=== PATIENT | male | born 1950 | race Hispanic/Latino ===

== ENCOUNTER 2018-03-25 11:49 | Emergency (ER) | payer BC ==
[2018-03-25 11:59] VITALS: BP 120/86
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
== END 2018-03-25 12:50 | disposition home or self-care (01) ==
LOC: ED 11:49
DX: S00.512A Abrasion of oral cavity, initial encounter (principal); E86.0 Dehydration; I10 Essential (primary) hypertension; R42 Dizziness and giddiness; Z90.49 Acquired absence of other specified parts of digestive tract; F17.200 Nicotine dependence, unspecified, uncomplicated; Z59.0 Homelessness; X58.XXXA Exposure to other specified factors, initial encounter; Y93.89 Activity, other specified; Y92.89 Other specified places as the place of occurrence of the external cause; Y99.8 Other external cause status
CPT/HCPCS: 99282

== ENCOUNTER 2018-03-25 18:35 | Emergency (ER) | payer MEDICARE ==
[2018-03-25] MEDS ORDERED: NACL 0.9% 1000 ML 1,000 ML IV ONE (19:05)
[2018-03-25 19:07] LABS: Basophils # (Auto) 0.1 K/mm3 (0.0-0.1); Basophils % (Auto) 1.1 % (0.0-1.8); Eosinophils # (Auto) 0.4 K/mm3 (0.0-0.4); Hematocrit 44.6 % (35.5-45.6); Hemoglobin 15.6 gm/dl (11.8-15.2); Lymphocytes # (Auto) 1.9 K/mm3 (1.2-5.4); Lymphocytes % (Auto) 24.4 % (13.4-35.0); Mean Corpuscular HGB Conc 35 % (32-34); Mean Corpuscular Hemoglobin 33 pg (28-32); Mean Corpuscular Volume 94 fl (84-94); Monocytes # (Auto) 1.1 K/mm3 (0.0-0.8); Monocytes % (Auto) 14.1 % (0.0-7.3); Platelet Count 223 K/mm3 (140-440); Red Blood Count 4.72 M/mm3 (3.65-5.03); Red Cell Distribution Width 13.9 % (13.2-15.2)
--- NOTE | 2018-03-25 19:09 | Emergency Department Report ---
ED Psych HPI - General Chief Complaint: Overdose Stated Complaint: WITHDRAWS/SUICIDAL Time Seen by Provider: 03/25/18 18:58 Source: patient Mode of arrival: Ambulatory - History of Present Illness Initial Comments: Patient is a 68-year-old male with history of drug abuse. Patient stated that he was using heroine and he came today and he was complaining of withdrawal. Patient received hydrocodone 12 tablets. Patient stated that he went home and he started taking hold the medicine to help with his withdrawal. Patient stated that he did the medicine to kill himself but to help with his symptoms. Patient stated that his very depressed and he is thinking about killing himself and he is also asking for drug detoxification and rehabilitation. Patient denied any visual or auditory hallucination. Patient denied any homicidal ideation. Patient is alert and oriented 3 in no acute distress. MD Complaint: suicidal ideation, feels depressed - Related Data Previous Rx's Medication Instructions Recorded Last Taken Type HYDROcodone/APAP 5-325 [[place] 1 each PO Q4HR PRN #12 tablet 03/25/18 Unknown Rx 5/325] Ibuprofen [Motrin] 600 mg PO Q8H PRN #20 tablet 03/25/18 Unknown Rx Penicillin V Potassium 500 mg PO TID #21 tablet 03/25/18 Unknown Rx Allergies Allergy/AdvReac Type Severity Reaction Status Date / Time No Known Allergies Allergy Unverified 03/25/18 11:59 ED Review of Systems ROS: Stated complaint: WITHDRAWS/SUICIDAL Other details as noted in HPI Comment: All other systems reviewed and negative Constitutional: denies: chills, fever Respiratory: denies: cough, orthopnea, shortness of breath, SOB with exertion, wheezing Gastrointestinal: denies: abdominal pain, nausea, vomiting, diarrhea, constipation, hematemesis, melena, hematochezia ED Past Medical Hx - Past Medical History Hx Hypertension: Yes (recovered alcoholic/drug use) - Surgical History Hx Cholecystectomy: Yes Additional Surgical History: Fx LLL/back,hernia repair x2 - Social History Smoking Status: Current Every Day Smoker Substance Use Type: Heroin - Medications Home Medications: Home Medications Medication Instructions Recorded Confirmed Last Taken Type HYDROcodone/APAP 5-325 [[place] 1 each PO Q4HR PRN #12 tablet 03/25/18 Unknown Rx 5/325] Ibuprofen [Motrin] 600 mg PO Q8H PRN #20 tablet 03/25/18 Unknown Rx Penicillin V Potassium 500 mg PO TID #21 tablet 03/25/18 Unknown Rx ED Physical Exam - General Limitations: No Limitations General appearance: alert, in no apparent distress, anxious, other (depressed) - Head Head exam: Present: atraumatic, normocephalic, normal inspection - Eye Eye exam: Present: normal appearance Pupils: Present: other (pinpoint pupils) - Neck Neck exam: Present: normal inspection, full ROM. Absent: tenderness, meningismus, lymphadenopathy, thyromegaly - Respiratory Respiratory exam: Present: normal lung sounds bilaterally. Absent: respiratory distress, wheezes, rales, rhonchi, chest wall tenderness, accessory muscle use, decreased breath sounds, prolonged expiratory - Cardiovascular Cardiovascular Exam: Present: tachycardia - GI/Abdominal GI/Abdominal exam: Present: soft, normal bowel sounds. Absent: distended, tenderness, guarding, rebound, rigid, organomegaly, mass, bruit, pulsatile mass , hernia - Extremities Exam Extremities exam: Present: normal inspection, full ROM, normal capillary refill. Absent: pedal edema, calf tenderness - Neurological Exam Neurological exam: Present: alert, oriented X3, CN II-XII intact, normal gait, reflexes normal - Psychiatric Psychiatric exam: Present: depressed, suicidal ideation. Absent: anxious, flat affect, manic, homicidal ideation - Skin Skin exam: Present: warm, intact ED Course Vital Signs 03/25/18 03/25/18 18:37 20:45 Temperature 98.2 F 98.6 F Pulse Rate 123 H 84 Respiratory 18 20 Rate Blood Pressure 104/79 Blood Pressure 128/72 [Left] O2 Sat by Pulse 96 100 Oximetry - Reevaluation(s) Reevaluation #1: 03/26/18 00:22 Patient is alert, oriented 3 in no acute distress. Patient denied any suicidal thoughts and stated that he just want drug rehabilitation as soon as possible. Patient Tylenol level is 9 which is lower than previous level which was in the normal limits also. Patient is medically clear to be admitted to drug rehabilitation. According to our mental mental health bi technical lead patient will be admitted to a [facility] in the morning. ED Medical Decision Making - Lab Data Result diagrams: 03/25/18 18:53 03/25/18 18:53 - Medical Decision Making Patient is seen by our mental health bi technical lead. She advised that patient needed to be admitted to the [facility] on drug rehabilitation. She stated that she did talk to the nurse that taking care of the knee revision medical unit and she stated that if we can keep the patient in the ER and she will admit the patient in the morning. Critical care attestation.: If time is entered above; I have spent that time in minutes in the direct care of this critically ill patient, excluding procedure time. ED Disposition Clinical Impression: Drug overdoses, Substance abuse Disposition: [id number] PS[facility] HOSP/PSY UNIT Is pt being admited?: No Condition: Stable Referrals: PRIMARY CARE, [Primary Care Provider] - 3-5 Days
[2018-03-25 19:20] LABS: Calcium 9.6 mg/dL (8.4-10.2)
[2018-03-25 19:23] LABS: Albumin 4.1 g/dL (3.9-5); Bilirubin,Direct 0.2 mg/dL (0-0.2)
[2018-03-26 03:26] VITALS: BP 128/72
== END 2018-03-26 00:35 ==
LOC: EEVIPCON 18:35 → ED 18:35
DX: T40.2X2A Poisoning by other opioids, intentional self-harm, initial encounter (principal); F32.9 Major depressive disorder, single episode, unspecified; F11.10 Opioid abuse, uncomplicated; I10 Essential (primary) hypertension; F17.200 Nicotine dependence, unspecified, uncomplicated; Z90.49 Acquired absence of other specified parts of digestive tract; Y92.89 Other specified places as the place of occurrence of the external cause
CPT/HCPCS: 36415; 80048; 80074; 85025; 93005; 93010; 99285; G0480; 80320; 99283

== ENCOUNTER 2018-11-05 15:38 | Emergency (ER) | payer MEDICARE ==
[2018-11-05] MEDS ORDERED: IBUPROFEN PO ONE (16:10)
--- NOTE | 2018-11-05 16:10 | Emergency Department Report ---
Chief Complaint: Back Pain/Injury Stated Complaint: BACK PAIN/NEEDS SHOWER Time Seen by Provider: 11/05/18 16:09 - HPI History of Present Illness: TO ER VIA EMS AMBULATORY SEE TRIAGE NOTE VSS NAD MSE COMPLETED - Exam Vital Signs: Vital Signs 11/05/18 15:53 Temperature 97.6 F Pulse Rate 76 Respiratory 18 Rate Blood Pressure 151/96 O2 Sat by Pulse 96 Oximetry MSE screening note: Focused history and physical exam performed. Due to findings the following was ordered: ED Disposition for MSE Condition: Stable
[2018-11-05 21:17] VITALS: BP 151/96
== END 2018-11-05 18:07 ==
LOC: ED 15:38
DX: M54.9 Dorsalgia, unspecified (principal); Z53.21 Procedure and treatment not carried out due to patient leaving prior to being seen by health care provider